=== PATIENT | female | born 1985 | race Caucasian/White ===

== ENCOUNTER 2017-03-16 10:59 | Emergency (ER) | payer OTHER ==
[~2017-03-16] VITALS: Ht 167.6 cm; Wt 86.4 kg
[~2017-03-16 10:59] MED LIST: DOCU240C41 PO; DOCU250C2 PO; IBUP800T28 PO; OMEP20TA86 PO; PANT40TA3 PO; RANI300T4 PO
[2017-03-16 11:05] VITALS: BP 174/86; PULSE 59; RESP 16; O2SAT 100
--- NOTE | 2017-03-16 11:26 | ED.REPORT ---
HPI-General Illness Date of Service Mar 16, 2017 ED Provider: Brad Valera MD A 31 year old female with a history of bulimia, hiatal hernia, daily marijuana use and GERD presents to the ED complaining of burning abdominal pain. The pain is located in her epigastric area, doesn't radiate, and began this morning following a large meal last night. The pain feels like her normal heartburn pain and is rated up to an 8/10. Currently 4/10. Denies chest pain, hematemesis , suicidal ideation or homicidal ideation. Nursing Notes Stated Complaint: NAUSEA/ABDOMINAL PAIN Chief Complaint: Female Abdominal Pain Nursing Notes Reviewed: Yes Allergies: Coded Allergies: latex (Verified Allergy, Intermediate, 03/09/14) Scheduled Docusate Calcium (Stool Softener) 240 Mg Capsule 200 MG PO HS Omeprazole (Omeprazole) 20 Mg Tablet.dr 20 MG PO DAILY Pantoprazole DR (Pantoprazole DR) 40 Mg Tablet.dr 40 MG PO DAILY Ranitidine (Ranitidine) 300 Mg Tablet 300 MG PO HS Scheduled PRN Docusate Sodium (Docusate Sodium) 250 Mg Capsule 250 MG PO BID PRN PRN For Constipation Ibuprofen (Ibuprofen) 800 Mg Tablet 800 MG PO TID PRN PRN For Pain General Time Seen by MD: 11:25 Chief Complaint Abdominal pain Hx Obtained From: Patient Arrived By: Walk-in Sudden in Onset?: No Onset Occurred: 5 - 8 hours ago Symptom Duration: Since onset Location: : Abdomen Quality: Painful Severity: Maximum: Pain level 8 out of 10 Recent Healthcare: No recent hospitalization, Recent doctor visit Similar Sx Previous: No Past Medical History Past Medical History Migranes. Hiatal hernia. Bulimia. Reports: GERD Past Surgical History hernia surgery Reports: Family History Dad had a liver transplant from alcoholism Mother has "heart problems". Unspecified. Denies severe cardiac disease of close relatives. 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 Physical Exam Constitutional: Well-developed, well-nourished. Not diaphoretic. Head: Normocephalic and atraumatic. Mouth/Throat: Oropharynx is clear and moist. No oropharyngeal exudate. Eyes: EOM are normal. Pupils are equal, round, and reactive to light. Neck: Supple, no tracheal deviation. Cardiovascular: Normal rate, regular rhythm. Equal and intact distal pulses throughout. Pulmonary/Chest: Effort normal and breath sounds normal. No respiratory distress. Abdominal: Soft. No distension. There is no tenderness, rebound, or guarding. Bowel sounds present. Musculoskeletal: Range of motion grossly intact, moving all extremities. No edema or tenderness appreciated. Neurological: AOx3. Grossly nonfocal exam. Strength and sensation intact and equal to bilateral upper and lower extremities. Skin: Warm and dry, no rashes or pallor appreciated. Psychiatric: Appropriate mood and affect. Behavior appears normal. No suicidal or homicidal ideation. Vital Signs Vital Signs Date Time Temp Pulse Resp B/P Pulse Ox O2 Delivery O2 Flow Rate FiO2 03/16/17 14:08 37.1 68 20 108/56 98 Room Air 03/16/17 13:29 53 20 119/63 96 Room Air 03/16/17 11:05 36.6 59 16 174/86 100 Initial VS: Reviewed Interpretation & Diagnostics Lab Results Interpretation Result Diagram: 03/16/17 1145 03/16/17 1145 Test 03/16/17 11:45 White Blood Count 6.8th/mm3 (3.8-10.1) Red Blood Count 4.34mil/mm3 (3.90-5.20) Hemoglobin 13.4g/dL (12.0-15.6) Hematocrit 39.4% (35.0-46.0) Mean Corpuscular Volume 90.8fL (81-100) Mean Corpuscular Hemoglobin 30.9pg (27.0-35.0) Mean Corpuscular Hemoglobin Concent 34.0% (32.0-37.0) Red Cell Distribution Width 12.9% (12.3-15.4) Platelet Count 237bil/L (150-400) Neutrophils (%) (Auto) 59.6% (40-74) Lymphocytes (%) (Auto) 31.9% (14-46) Monocytes (%) (Auto) 6.5% (4-12) Eosinophils (%) (Auto) 1.9% (0-5) Basophils (%) (Auto) 0.1% (0-3) Sodium Level 138mEq/L (134-144) Potassium Level 3.8mEq/L (3.5-5.2) Chloride Level 101mEq/L (97-108) Carbon Dioxide Level 22mmol/L (18-29) Blood Urea Nitrogen 9mg/dL (6-20) Creatinine 0.71mg/dL (0.57-1.00) Estimat Glomerular Filtration Rate 139mL/min (>59) Glucose Level 108mg/dL (60-99) Lactic Acid Level 1.1mmol/L (0.4-2.0) Calcium Level 9.3mg/dL (8.5-10.1) Magnesium Level 2.1mg/dL (1.6-2.6) Total Bilirubin 0.4mg/dL (0.0-1.2) Aspartate Amino Transf (AST/SGOT) 21U/L (0-50) Alanine Aminotransferase (ALT/SGPT) 24U/L (0-32) Alkaline Phosphatase 44U/L (25-150) Troponin T < 0.010ug/L (0.0-0.011) Total Protein 7.7g/dL (6.4-8.4) Albumin 4.3g/dL (3.4-5.0) Lipase 43U/L (13-60) ECG Interpretation ECG Interpretation: normal sinus rhythm with a rate of 55 Time: 11:54 Interpreted by: ED physician Re-Eval/Medical Decision Med Decision/Clinical Course 31F w/ epigastric pain that feels like previous heartburn. Present since last night. Low risk by HEART score; EKG NSR w/ no acute ischemic changes. Trop negative. Lipase wnl. CBC and CMP grossly wnl. Lactic acid 1.1. Given zofran and gi cocktail w/ relief. Has hx of hiatal hernia, though presentation and exam don't seem c/w this right now. States that what she really wants is a PCP. Referred to residency clinic for further management and eval. Given feeling well , reasonable to d/c home w/ careful return precautions and close f/u as outpatient in the next several days. Patient agreeable to plan, no further questions. Source of Hx: Old records Time of Eval: 13:50 Patient Status: Condition improved Re-Evaluation/Progress Note: Pt rechecked, whose condition has improved following GI cocktail. The diagnosis and plan for discharge are discussed. The pt understands and agrees with the plan. All questions are addressed at this time. Counseled Regarding: Diagnosis, Lab results, Need for follow-up, When/why to return to ED Discharge & Departure Primary Impression: Abdominal pain Abdominal location: epigastric Qualified Code: R10.13 - Epigastric pain Disposition: Home Discharge Condition All VS Reviewed: Yes Condition: Improved Patient Instructions: Acute Abdominal Pain (ED), Gastroesophageal Reflux Disease (ED) Additional Instructions: Thank you for allowing us to be a part of your care. It was nice to meet you today. Please read the attached. Call the Residency Clinic tomorrow to arrange a follow up appointment in the next several days for further evaluation and to follow up on today's visit. Return to the emergency department if you develop any new or worsening symptoms including fever, abdominal pain, intractable vomiting, blood in your stool, or other symptoms of concern to you. Referrals: [facility] Res[facility] Scribe Attestation Portions of this note were transcribed by Marquis Perez. I, Dr. Valera personally performed the history, physical exam and medical decision-making; I reviewed and confirmed the accuracy of the information in the transcribed note. copies to: [facility] Brad Valera MD Mar 16, 2017 11:26 MARQUIS PEREZ Mar 16, 2017 12:08
[2017-03-16] MEDS ORDERED: 0.9% Sodium Chloride 1,000 ML IV ONE (11:48)
[2017-03-16] MEDS ORDERED: Ondansetron 2 mg/mL 2 mL Inj IVPUSH PRN (11:50)
[2017-03-16 11:53] LABS: BASOPHILS % (AUTO) 0.1 % (0-3); EOSINOPHILS % (AUTO) 1.9 % (0-5); MONOCYTES % (AUTO) 6.5 % (4-12); Mean Corpuscular Hemoglobin 30.9 pg (27.0-35.0); Mean Corpuscular Volume 90.8 fL (81-100); NEUTROPHILS % (AUTO) 59.6 % (40-74); Platelet Count 237 bil/L (150-400)
[2017-03-16 12:13] LABS: Magnesium 2.1 mg/dL (1.6-2.6)
[2017-03-16] MEDS ORDERED: Donnatal-Lido-Mylant 1:1:1 15 mL Syringe PO ONE (12:55)
[2017-03-16 13:29] VITALS: BP 119/63; PULSE 53; RESP 20; O2SAT 96
[2017-03-16] MEDS ORDERED: LidocaineVisc 2%:Antacid 1:1 10 mL Syringe PO ONE (13:30)
[2017-03-16 14:08] VITALS: BP 108/56; PULSE 68; RESP 20; O2SAT 98
== END 2017-03-16 14:08 | disposition home or self-care (01) ==
LOC: SED 10:59
DX: R10.13 Epigastric pain (principal); K21.9 Gastro-esophageal reflux disease without esophagitis; F50.2 Bulimia nervosa; K44.9 Diaphragmatic hernia without obstruction or gangrene; F12.90 Cannabis use, unspecified, uncomplicated; Z91.040 Latex allergy status
CPT/HCPCS: 36415; 80053; 83605; 83690; 83735; 84484; 85025; 93005; 96361; 96374; 99285; J2405; J7030